=== PATIENT | male | born 1950 | race Hispanic/Latino ===

== ENCOUNTER → 2018-03-27 | Outpatient (CLI) | payer OTHER ==
[~2018-03-27] MED LIST: ALLO300T2 PO; KRIL1CAP2 PO; LISI10TA7 PO; LOVA10TA2 PO
== END | disposition home or self-care (01) ==
LOC: OIH 07:51
PROVIDERS: ATTEND Internal Medicine
DX: I70.90 Unspecified atherosclerosis (principal); I10 Essential (primary) hypertension; M47.815 Spondylosis without myelopathy or radiculopathy, thoracolumbar region
CPT/HCPCS: 71046

== ENCOUNTER 2020-05-12 04:10 | Inpatient (IN) | payer MEDICARE ==
[~2020-05-12] VITALS: Ht 165.1 cm; Wt 92.3 kg
[~2020-05-12 04:10] MED LIST changes: -KRIL1CAP2 PO; +KRIL1CAP4 PO; +LISI10TA24 PO; -LISI10TA7 PO
[2020-05-12 04:44] LABS: BASOPHILS % (AUTO) 0.6 % (0.0-5.0); EOSINOPHILS % (AUTO) 1.4 % (0.0-8.0); HEMATOCRIT 43.2 % (42-54); LYMPHOCYTES % (AUTO) 27.5 % (21.0-51.0); MEAN CORPUSCULAR HEMOGLOBIN 30.2 pg (27.0-33.0); MEAN CORPUSCULAR HGB CONC 34.7 g/dL (32.0-36.0); MEAN CORPUSCULAR VOLUME 86.9 fL (79-99); MONOCYTES % (AUTO) 0.6 % (3.0-13.0); NEUTROPHILS % (AUTO) 69.6 % (40.0-77.0); PLATELET COUNT (AUTO) 180 K/uL (130-400); RED BLOOD CELL COUNT(AUTO) 4.97 MIL/uL (4.50-6.20); RED CELL DISTRIBUTION WIDTH 12.6 % (11.0-15.5); WHITE BLOOD COUNT (AUTO) 3.6 K/uL (4.8-10.8)
[2020-05-12] MEDS ORDERED: ONDANSETRON 4MG INJ ONE (04:45)
[2020-05-12] MEDS ORDERED: GENTAMICIN SULFATE 80 MG/2 ML VIAL ONE (04:46)
[2020-05-12] MEDS ORDERED: CEFTRIAXONE 1G VIAL ONE (04:46)
[2020-05-12] MEDS ORDERED: ACETAMINOPHEN 325 MG TAB ONE (04:46)
[2020-05-12] MEDS ORDERED: 0.9%NACL 1000ML 1,000 ML IV ONE (04:48)
[2020-05-12 04:55] LABS: CREATININE 1.3 mg/dL (0.5-1.5); POTASSIUM 3.9 mmol/L (3.5-5.1)
[2020-05-12 04:59] LABS: ALBUMIN 3.9 g/dL (3.5-5.0); BILIRUBIN,TOTAL 1.1 mg/dL (0.2-1.0); TOTAL PROTEIN, SERUM 7.6 g/dL (6.0-8.3)
[2020-05-12 07:54] LABS: APPEARANCE,URINE CLOUDY (CLEAR); BILIRUBIN,URINE MODERATE (NEGATIVE); COLOR,URINE RED (YELLOW); GLUCOSE, URINE (UA) 100 mg/dL (NEGATIVE); KETONES,URINE 15 mg/dL (NEGATIVE); LEUKOCYTE ESTERASE ,URINE MODERATE (NEGATIVE); NITRATE,URINE POSITIVE (NEGATIVE); OCCULT BLOOD,URINE LARGE (NEGATIVE); PH,URINE 6.5 (5.0-8.0); PROTEIN,URINE >=300 mg/dL (NEGATIVE)
[2020-05-12 08:44] LABS: RBC,URINE TNTC /HPF (0-1); WBC,URINE TNTC /HPF (0-1)
[2020-05-12 08:45] LABS: BACTERIA,URINE Many /HPF (None Seen); SQUAMOUS EPITHELIAL CELL,UR Rare /HPF (0-2)
[2020-05-12] MEDS ORDERED: 0.9% NACL 500ML IV.SOLN 500 ML IV ONE (08:45)
[2020-05-12] MEDS ORDERED: ONDANSETRON 4MG INJ IVP PRN (12:15)
[2020-05-12] MEDS: LACTATED RINGERS 1000ML 1,000 ML IV SCH ×2 (12:15→20:15)
[2020-05-12] MEDS ORDERED: VANCOMYCIN KIT 1 GM/250 ML IV.KIT IV SCH (12:15)
[2020-05-12] MEDS ORDERED: VANCOMYCIN PROTOCOL PER PHARMACY IV SCH (12:15)
[2020-05-12] MEDS ORDERED: NOREPINEPHRIN 4MG/NS 250ML 250 ML IV PRN (12:15)
[2020-05-12] MEDS ORDERED: ACETAMINOPHEN 650 MG SUPPOSITORY RC PRN (12:15)
[2020-05-12] MEDS ORDERED: ZOSYN 3.375GM+NS 50ML 50 ML IV ONE (12:57)
[2020-05-12] MEDS ORDERED: ZOSYN 3.375GM+NS 50ML 50 ML IV SCH (13:00)
[2020-05-12 13:15] LABS: INR 1.39 (0.85-1.15); PROTHROMBIN TIME 14.7 SEC (9.6-11.6)
[2020-05-12] MEDS ORDERED: VANCOMYCIN 1G 1.25 GM in 0.9% NACL 250ML 250 ML IV SCH (13:15)
[2020-05-12 13:16] LABS: PARTIAL THROMBOPLASTIN TIME 32.6 SEC (26.3-35.5)
[2020-05-12] MEDS ORDERED: COMPOUND IV REFRIGERATED 1 EACH IVSOLN MISC PRN (13:30)
[2020-05-12] MEDS ORDERED: LACTATED RINGERS 1000ML 1,000 ML IV ONE (13:31)
[2020-05-12] MEDS: MEROPENEM 500 MG VIAL IVP SCH ×2 (14:45→22:12)
[2020-05-12] MEDS ORDERED: NOREPINEPHRIN 4MG/NS 250ML 250 ML IV ONE ×2 (15:11→18:21)
[2020-05-12] MEDS ORDERED: 0.9%NACL 50ML 50 ML IV ONE (16:29)
[2020-05-12] MEDS ORDERED: MEROPENEM 500 MG VIAL ONE (16:29)
[2020-05-12] MEDS: INSULIN HUMULIN R 100 UNIT/ML 3ML SQ SCH ×2 (16:30→21:00)
[2020-05-12 21:15] VITALS: BP 134/89
[2020-05-12] MEDS: VANCOMYCIN 750MG + NS 250 ML IV SCH ×2 (21:39)
[2020-05-12 22:00] VITALS: BP 135/69
[2020-05-12] MEDS: FAMOTIDINE 20MG TAB PO SCH (22:14)
[2020-05-12 23:00] VITALS: BP 123/69
[2020-05-13] VITALS (28 sets, daily range): BP systolic 98–144; BP diastolic 51–74
[2020-05-13] MEDS ORDERED: FOLI1TAB85 PO (02:05)
[2020-05-13] MEDS: LACTATED RINGERS 1000ML 1,000 ML IV SCH ×3 (02:29→21:07)
[2020-05-13 03:32] LABS: BASOPHILS % (AUTO) 0.4 % (0.0-5.0); EOSINOPHILS % (AUTO) 0.1 % (0.0-8.0); HEMATOCRIT 37.4 % (42-54); MEAN CORPUSCULAR HEMOGLOBIN 29.9 pg (27.0-33.0); MONOCYTES % (AUTO) 3.9 % (3.0-13.0); NEUTROPHILS % (AUTO) 85.7 % (40.0-77.0); PLATELET COUNT (AUTO) 113 K/uL (130-400); RED BLOOD CELL COUNT(AUTO) 4.25 MIL/uL (4.50-6.20); RED CELL DISTRIBUTION WIDTH 13.3 % (11.0-15.5); WHITE BLOOD COUNT (AUTO) 26.7 K/uL (4.8-10.8)
[2020-05-13 03:40] LABS: CREATININE 1.2 mg/dL (0.5-1.5); HEMOGLOBIN A1C 6.1 % (4.0-6.0); MAGNESIUM 1.2 mg/dL (1.80-2.40); PHOSPHORUS 2.5 mg/dL (2.5-4.9)
[2020-05-13] MEDS: MEROPENEM 500 MG VIAL IVP SCH ×3 (06:29→22:58)
[2020-05-13] MEDS: INSULIN HUMULIN R 100 UNIT/ML 3ML SQ SCH ×4 (07:30→21:00)
[2020-05-13] MEDS: MAGNESIUM 2GM PREMIX 50ML 50 ML IV PRN (08:30)
[2020-05-13] MEDS: FAMOTIDINE 20MG TAB PO SCH ×2 (08:37→21:00)
[2020-05-13] MEDS: VANCOMYCIN 750MG + NS 250 ML IV SCH ×2 (10:13)
[2020-05-13] MEDS ORDERED: ALBUTEROL 0.083% 2.5 MG/3 ML INH IH PRN (11:30)
[2020-05-13] MEDS ORDERED: FOLI0.8T22 PO (12:33)
[2020-05-13] MEDS ORDERED: TAMS-1 PO (12:34)
[2020-05-13] MEDS ORDERED: CEPH500C2 PO (12:36)
[2020-05-13] MEDS ORDERED: TAMSULOSIN HCL 0.4 MG CAP.ER.24H PO SCH (13:45)
[2020-05-13] MEDS: ACETAMINOPHEN 325 MG TAB PO PRN (21:02)
[2020-05-14] VITALS (16 sets, daily range): BP systolic 111–145; BP diastolic 54–94
[2020-05-14] MEDS: LIDOCAINE HCL 2% JELLY 5 ML TP PRN (01:05)
[2020-05-14] MEDS: TRAMADOL HCL 50 MG TABLET PO PRN (02:17)
[2020-05-14 03:50] LABS: HEMATOCRIT 33.9 % (42-54); MEAN CORPUSCULAR HEMOGLOBIN 30.4 pg (27.0-33.0); MEAN CORPUSCULAR HGB CONC 35.1 g/dL (32.0-36.0); MEAN CORPUSCULAR VOLUME 86.7 fL (79-99); RED BLOOD CELL COUNT(AUTO) 3.91 MIL/uL (4.50-6.20); RED CELL DISTRIBUTION WIDTH 13.2 % (11.0-15.5); WHITE BLOOD COUNT (AUTO) 20.8 K/uL (4.8-10.8)
[2020-05-14 03:58] LABS: CREATININE 0.9 mg/dL (0.5-1.5); MAGNESIUM 1.8 mg/dL (1.80-2.40); POTASSIUM 3.3 mmol/L (3.5-5.1)
[2020-05-14] MEDS: INSULIN HUMULIN R 100 UNIT/ML 3ML SQ SCH ×4 (07:30→20:08)
[2020-05-14] MEDS: MEROPENEM 500 MG VIAL IVP SCH (08:37)
[2020-05-14] MEDS: FAMOTIDINE 20MG TAB PO SCH ×2 (08:49→20:12)
[2020-05-14] MEDS: ACETAMINOPHEN 325 MG TAB PO PRN ×2 (08:49→13:49)
[2020-05-14] MEDS: TAMSULOSIN HCL 0.4 MG CAP.ER.24H PO SCH (08:49)
[2020-05-14] MEDS: MORPHINE 2 MG SYG IVP PRN (10:15)
[2020-05-14] MEDS: LACTATED RINGERS 1000ML 1,000 ML IV SCH (11:57)
[2020-05-14] MEDS: CEFTRIAXONE 1G VIAL IVP SCH (13:49)
[2020-05-15] VITALS: BP 131/79
[2020-05-15] MEDS ORDERED: LIDOCAINE HCL-MPF 1% 2ML VIAL IV PRN (01:15)
[2020-05-15] MEDS ORDERED: POTASSIUM CHLORIDE 10% ELIXIR 20 MEQ/15 ML UDCUP PO PRN (01:15)
[2020-05-15] MEDS ORDERED: POTASSIUM CHLORIDE 20MEQ/100ML 100 ML IV PRN (01:15)
[2020-05-15] MEDS: MAGNESIUM 2GM PREMIX 50ML 50 ML IV PRN (01:37)
[2020-05-15] MEDS ORDERED: KCL 20 MEQ ERTAB PO ONE (01:58)
[2020-05-15 04:00] VITALS: BP 116/71
[2020-05-15] MEDS: KCL 20 MEQ ERTAB PO PRN ×6 (04:35→22:50)
[2020-05-15 06:13] LABS: MEAN CORPUSCULAR HEMOGLOBIN 29.5 pg (27.0-33.0); MEAN CORPUSCULAR HGB CONC 34.6 g/dL (32.0-36.0); MEAN CORPUSCULAR VOLUME 85.4 fL (79-99); RED BLOOD CELL COUNT(AUTO) 4.1 MIL/uL (4.50-6.20); RED CELL DISTRIBUTION WIDTH 13.1 % (11.0-15.5); WHITE BLOOD COUNT (AUTO) 15.9 K/uL (4.8-10.8)
[2020-05-15] MEDS: INSULIN HUMULIN R 100 UNIT/ML 3ML SQ SCH ×4 (06:31→21:00)
[2020-05-15 06:35] LABS: CREATININE 0.8 mg/dL (0.5-1.5); POTASSIUM 3.6 mmol/L (3.5-5.1)
[2020-05-15 08:00] VITALS: BP 140/73
[2020-05-15] MEDS: FAMOTIDINE 20MG TAB PO SCH ×2 (08:37→19:49)
[2020-05-15] MEDS: TAMSULOSIN HCL 0.4 MG CAP.ER.24H PO SCH (08:37)
[2020-05-15] MEDS: CEFTRIAXONE 1G VIAL IVP SCH (11:57)
[2020-05-15 12:00] VITALS: BP 119/76
[2020-05-15] MEDS: MORPHINE 2 MG SYG IVP PRN ×2 (15:02→19:53)
[2020-05-15 16:00] VITALS: BP 145/74
[2020-05-15 20:16] VITALS: BP 137/73
[2020-05-15] MEDS ORDERED: ACYCLOVIR OINTMENT 30GM TP SCH (23:00)
[2020-05-16] VITALS (7 sets, daily range): BP systolic 114–148; BP diastolic 57–82
[2020-05-16] MEDS: MORPHINE 2 MG SYG IVP PRN (00:37)
[2020-05-16] MEDS: TRAMADOL HCL 50 MG TABLET PO PRN (03:03)
[2020-05-16] MEDS: INSULIN HUMULIN R 100 UNIT/ML 3ML SQ SCH ×4 (06:00→20:13)
[2020-05-16] MEDS: ACYCLOVIR OINTMENT 30GM TP SCH ×5 (08:02→20:28)
[2020-05-16] MEDS: LIDOCAINE HCL 2% JELLY 5 ML TP PRN (08:02)
[2020-05-16] MEDS: TAMSULOSIN HCL 0.4 MG CAP.ER.24H PO SCH (08:41)
[2020-05-16] MEDS: FAMOTIDINE 20MG TAB PO SCH ×2 (08:41→20:28)
[2020-05-16 11:36] LABS: HEMATOCRIT 40.4 % (42-54); MEAN CORPUSCULAR HEMOGLOBIN 30.1 pg (27.0-33.0); MEAN CORPUSCULAR HGB CONC 34.4 g/dL (32.0-36.0); MEAN CORPUSCULAR VOLUME 87.4 fL (79-99); RED BLOOD CELL COUNT(AUTO) 4.62 MIL/uL (4.50-6.20); RED CELL DISTRIBUTION WIDTH 13.7 % (11.0-15.5); WHITE BLOOD COUNT (AUTO) 9.7 K/uL (4.8-10.8)
[2020-05-16] MEDS ORDERED: MAGNESIUM HYDROXIDE 30 ML/UDCUP PO PRN (11:45)
[2020-05-16] MEDS: POLYETHYLENE GLYCOL 3350 17 GM POWD.PACK PO SCH (13:46)
[2020-05-16] MEDS: CEFTRIAXONE 1G VIAL IVP SCH (13:46)
[2020-05-16] MEDS: ACYCLOVIR 200 MG CAPSULE PO SCH ×2 (13:48→20:27)
[2020-05-16] MEDS: KCL 20 MEQ ERTAB PO PRN ×2 (15:30→17:39)
[2020-05-17 03:55] VITALS: BP 142/76
[2020-05-17] MEDS: ACYCLOVIR OINTMENT 30GM TP SCH ×3 (05:23→14:13)
[2020-05-17] MEDS: INSULIN HUMULIN R 100 UNIT/ML 3ML SQ SCH ×3 (05:23→16:30)
[2020-05-17 05:45] LABS: HEMATOCRIT 39.4 % (42-54); MEAN CORPUSCULAR HEMOGLOBIN 29.8 pg (27.0-33.0); MEAN CORPUSCULAR HGB CONC 34.8 g/dL (32.0-36.0); MEAN CORPUSCULAR VOLUME 85.7 fL (79-99); RED BLOOD CELL COUNT(AUTO) 4.6 MIL/uL (4.50-6.20); RED CELL DISTRIBUTION WIDTH 13.2 % (11.0-15.5); WHITE BLOOD COUNT (AUTO) 8.8 K/uL (4.8-10.8)
[2020-05-17 06:05] LABS: CREATININE 0.9 mg/dL (0.5-1.5); POTASSIUM 4.1 mmol/L (3.5-5.1)
[2020-05-17] MEDS: POLYETHYLENE GLYCOL 3350 17 GM POWD.PACK PO SCH (07:19)
[2020-05-17 07:30] VITALS: BP 139/84
[2020-05-17] MEDS: FAMOTIDINE 20MG TAB PO SCH (08:05)
[2020-05-17] MEDS: ACYCLOVIR 200 MG CAPSULE PO SCH ×2 (08:05→14:13)
[2020-05-17] MEDS: TAMSULOSIN HCL 0.4 MG CAP.ER.24H PO SCH (08:05)
[2020-05-17 11:00] VITALS: BP 142/79
[2020-05-17] MEDS: CEFTRIAXONE 1G VIAL IVP SCH (12:09)
[2020-05-17] MEDS ORDERED: ACYC400T20 PO (15:55)
[2020-05-17 16:00] VITALS: BP 137/76
[2020-09-12] MEDS ORDERED: DICY20TA3 PO (09:08)
== END 2020-05-17 18:35 | disposition home or self-care (01) | DRG 862 ==
LOC: EDH 04:10 → EDHIP 12:08 → 2DH 19:55 → 3BH 05-14 17:03
PROVIDERS: ADMIT Internal Medicine Critical Care Medicine; ATTEND Internal Medicine Critical Care Medicine
PROC: 02HV33Z Insertion of Infusion Device into Superior Vena Cava, Percutaneous Approach (ICD-10-PCS; principal; 2020-05-12)
DX: T81.44XA Sepsis following a procedure, initial encounter (principal); A41.51 Sepsis due to Escherichia coli [E. coli]; R65.21 Severe sepsis with septic shock; B00.2 Herpesviral gingivostomatitis and pharyngotonsillitis; N39.0 Urinary tract infection, site not specified; R53.81 Other malaise; R31.9 Hematuria, unspecified; Z20.822 Contact with and (suspected) exposure to COVID-19; E11.9 Type 2 diabetes mellitus without complications; E66.9 Obesity, unspecified; Z68.33 Body mass index [BMI] 33.0-33.9, adult; E78.5 Hyperlipidemia, unspecified; N40.0 Benign prostatic hyperplasia without lower urinary tract symptoms; Z79.899 Other long term (current) drug therapy; Z83.3 Family history of diabetes mellitus; Z85.038 Personal history of other malignant neoplasm of large intestine; Z85.46 Personal history of malignant neoplasm of prostate; L72.9 Follicular cyst of the skin and subcutaneous tissue, unspecified; H91.90 Unspecified hearing loss, unspecified ear; I10 Essential (primary) hypertension; Y84.8 Other medical procedures as the cause of abnormal reaction of the patient, or of later complication, without mention of misadventure at the time of the procedure; K59.00 Constipation, unspecified
CPT/HCPCS: 36415; 36569; 71045; 74176; 76770; 76870; 80048; 80053; 81001; 82550; 82948; 83036; 83605; 83690; 83735; 84100; 84132; 84145; 84484; 85025; 85027; 85378; 85610; 85730; 86850; 86900; 86901; 87040; 87077; 87088; 87186; 87426; 93306; 97039; A4344; C1894; G0378; J0696; J1580; J2185; J2405; J2543; J3370; J3475; J3490; J7030; J7040; J7050; J7120; U0003

== ENCOUNTER 2020-09-12 04:24 | Emergency (ER) | payer MEDICARE ==
[~2020-09-12] VITALS: Ht 167.6 cm; Wt 83.9 kg
[~2020-09-12 04:24] MED LIST changes: +ACYC400T20 PO; +FOLI1TAB85 PO; -KRIL1CAP4 PO; +TAMS-1 PO
[2020-09-12 05:21] VITALS: BP 169/91
[2020-09-12] MEDS ORDERED: ONDANSETRON 4MG INJ IVP ONE (05:30)
[2020-09-12] MEDS ORDERED: ONDANSETRON 4MG INJ ONE (05:46)
[2020-09-12 05:47] LABS: APPEARANCE,URINE Turbid (CLEAR); BILIRUBIN,URINE Negative (NEGATIVE); COLOR,URINE Yellow (YELLOW); GLUCOSE, URINE (UA) Negative (NEGATIVE); KETONES,URINE Trace mg/dL (NEGATIVE); LEUKOCYTE ESTERASE ,URINE Trace (NEGATIVE); NITRATE,URINE Negative (NEGATIVE); OCCULT BLOOD,URINE Negative (NEGATIVE); PH,URINE 5.5 (5.0-8.0); PROTEIN,URINE POS 2+ mg/dL (NEGATIVE)
[2020-09-12 05:52] LABS: BASOPHILS % (AUTO) 0.3 % (0.0-5.0); EOSINOPHILS % (AUTO) 0.2 % (0.0-8.0); HEMATOCRIT 51.2 % (42-54); MEAN CORPUSCULAR HEMOGLOBIN 30.4 pg (27.0-33.0); MEAN CORPUSCULAR HGB CONC 34.2 g/dL (32.0-36.0); MONOCYTES % (AUTO) 6.3 % (3.0-13.0); NEUTROPHILS % (AUTO) 87.8 % (40.0-77.0); PLATELET COUNT (AUTO) 211 K/uL (130-400); RED BLOOD CELL COUNT(AUTO) 5.75 MIL/uL (4.50-6.20); WHITE BLOOD COUNT (AUTO) 11.4 K/uL (4.8-10.8)
[2020-09-12 06:08] LABS: CREATININE 1.3 mg/dL (0.5-1.5)
[2020-09-12 06:12] LABS: ALBUMIN 4.7 g/dL (3.5-5.0); BILIRUBIN,TOTAL 0.8 mg/dL (0.2-1.0)
[2020-09-12] MEDS ORDERED: 0.9%NACL 1000ML 1,000 ML IV ONE ×2 (06:15→06:30)
[2020-09-12 06:21] LABS: BACTERIA,URINE Few /HPF (None Seen); RBC,URINE 0-1 /HPF (0-1)
[2020-09-12 06:43] VITALS: BP 147/87
[2020-09-12 09:00] VITALS: BP 119/81
[2020-09-12] MEDS ORDERED: DICY20TA11 PO (09:08)
[2020-09-12] MEDS ORDERED: ONDA4TAB4 PO (09:08)
== END 2020-09-12 09:31 | disposition home or self-care (01) ==
LOC: EDH 04:24
DX: E86.0 Dehydration (principal); R10.9 Unspecified abdominal pain; R11.2 Nausea with vomiting, unspecified; R19.7 Diarrhea, unspecified; Z79.899 Other long term (current) drug therapy; Z85.038 Personal history of other malignant neoplasm of large intestine
CPT/HCPCS: 36415; 74176; 80053; 81001; 83605; 83690; 84484; 85025; 87040 ×2; 87077; 87186; 93005; 96374; 99285; J2405; J7030

== ENCOUNTER → 2023-02-06 | Outpatient (CLI) | payer OTHER ==
[~2023-02-06] MED LIST changes: +CIPR7.5D OT; +DICY20TA3 PO; +IBUP-1493 PO; +ONDA4TAB4 PO
== END | disposition home or self-care (01) ==
LOC: RAH 10:06
PROVIDERS: ATTEND Family Medicine
DX: Z13.6 Encounter for screening for cardiovascular disorders (principal)
CPT/HCPCS: 75571

== ENCOUNTER → 2023-04-16 | Outpatient (CLI) | payer MEDICARE ==
[2023-04-16] MEDS: REGADENOSON 0.4 MG/5 ML PF SYG IVP ONE (14:20)
== END | disposition home or self-care (01) ==
LOC: SHCH 08:41
PROVIDERS: ATTEND Internal Medicine Cardiovascular Disease
DX: I25.10 Atherosclerotic heart disease of native coronary artery without angina pectoris (principal)
CPT/HCPCS: 78452; 93017; J2785; A9500 ×2; 96374

== ENCOUNTER → 2023-10-16 | Outpatient (CLI) | payer OTHER ==
[~2023-10-16] MED LIST changes: +ACET-2079 PO; +NAPR-1023 PO
== END | disposition home or self-care (01) ==
LOC: RAH 10:48
PROVIDERS: ATTEND Student in an Organized Health Care Education/Training Program
DX: M19.011 Primary osteoarthritis, right shoulder (principal); M25.711 Osteophyte, right shoulder; M25.811 Other specified joint disorders, right shoulder; M75.41 Impingement syndrome of right shoulder
CPT/HCPCS: 73221

== ENCOUNTER → 2025-02-16 | Outpatient (CLI) | payer OTHER ==
--- NOTE | 2025-02-16 19:51 | HMCSR ---
APPROVED REPORT EXAM: Two-dimensional and M-mode echocardiogram with Doppler and color Doppler. INDICATION ICD: R92.8 2D Dimensions RVDd 3.6 cm LVEF(%) 61.2 (>50%) LVED Vol(simp.) 82.7 mL IVSd 0.9 (0.7-1.1cm) FS(%) 32 % LVES Vol(simp.) 37.3 mL LVDd 4.1 (3.8-5.6cm) LA (2D) 3.9 (1.6-4.0cm) LVEF(%, simp.) 55 % PWd 0.9 (0.7-1.1cm) Ao Root(2D) 3.3 (2.0-3.7cm) LA ESV INDEX (BP) 14.35 mL/m2 LVDs 2.8 (2.5-4.0cm) LVOT diam 2.0 (1.8-2.4cm) IVC diam 1.6 cm M-Mode Dimensions EPSS 1.0 cm LA (MM) 4.1 (1.6-4.0cm) Ao Root(MM) 3.3 (2.0-3.7cm) Aortic Valve AoV Vmax 1.1 m/s Ao Peak GR 5.0 mmHg LVOT Vmax 0.8 m/s AoV VTI 0.2 m Ao Mean GR 2.6 mmHg LVOT VTI 0.16 m LIT (VMAX) 2.05 cm2 LIT (VTI) 2.1 cm2 Mitral Valve MV E Vmax 60.7 cm/s DECEL Time 218 ms MV A Vmax 70.0 cm/s P 1/2 T 54 ms E/A ratio 0.9 MVA (PHT) 4.1 cm2 TDI E/E' Medial 9.0 E/E' Lateral 6.1 Medial E' Peak V 6.78 cm/s Lateral E' Peak V 9.88 cm/s Pulmonary Valve PV Vmax 1.2 m/s PV VTI 0.26 m PV Mean GR 3.4 mmHg PV Peak GR 5.9 mmHg Left Ventricle The left ventricle is normal size. There is normal LV segmental wall motion. There is normal left ventricular wall thickness. LVEF is 56%. Indeterminate diastolic dysfunction. Right Ventricle The right ventricle is normal size. The right ventricular systolic function is normal. Atria The left atrium size is normal. The right atrium size is normal. Aortic Valve The aortic valve is normal in structure. No aortic regurgitation is present. There is no aortic valvular stenosis. Mitral Valve The mitral valve is trileaflet normal in structure. There is trace of mitral valve regurgitation noted. There is no mitral valve stenosis. Tricuspid Valve The tricuspid valve is normal in structure. There is no tricuspid valve regurgitation noted. Pulmonic Valve The pulmonary valve is normal in structure. There is no pulmonic valvular regurgitation. Great Vessels The aortic root is normal in size. The IVC is normal in size and collapses >50% with inspiration. Pericardium There is no pericardial effusion. Other Information Quality : Adequate Conclusion LVEF is 56%. LVEF is 56%.
== END | disposition home or self-care (01) ==
LOC: RAH 13:19
DX: R93.89 Abnormal findings on diagnostic imaging of other specified body structures (principal)
CPT/HCPCS: 93306